=== PATIENT | female | born 1985 | race Caucasian/White ===

== ENCOUNTER → 2016-11-11 | Outpatient (CLI) | payer OTHER ==
[2016-11-11 18:58] LABS: BASO % 0.7 % (0.0-1.0); EOS % 0.9 % (0.0-3.0); LARGE UNSTAINED CELL # 0.1 K/mm3 (0.0-0.4); LARGE UNSTAINED CELL % 1.5 % (0.0-4.0); LYMPH # 2.1 K/mm3 (1.5-6.5); LYMPH % 36.5 % (24.0-44.0); MEAN CORPUSCULAR HEMOGLOBIN 31.4 pg (27.0-33.0); MEAN CORPUSCULAR HGB CONC 34.2 g/dl (32.0-36.5); MEAN CORPUSCULAR VOLUME 91.8 fl (80.0-96.0); MONO # 0.3 K/mm3 (0.0-0.8); MONO % 5.3 % (0.0-5.0); PLATELET COUNT, AUTOMATED 268 k/mm3 (150-450); RED CELL DISTRIBUTION WIDTH 12.2 % (11.5-14.5); WHITE BLOOD COUNT 5.5 K/mm3 (4.0-10.0)
[2016-11-11 19:09] LABS: ESTRADIOL 64.7 PG/ML; FOLLICLE STIMULATING HORMONE 4.6 mIU/mL; LUTEINIZING HORMONE 7.1 mIU/mL; VITAMIN B12 LEVEL 657 PG/ML
[2016-11-11 19:15] LABS: ALBUMIN 4.1 GM/DL (3.2-5.2); ALBUMIN/GLOBULIN RATIO 1.37 (1.00-1.93); ALKALINE PHOSPHATASE 61 U/L (45-117); ALT/SGPT 25 U/L (12-78); ANION GAP 5 MEQ/L (8-16); AST/SGOT 21 U/L (15-37); BILIRUBIN,TOTAL 0.6 MG/DL (0.2-1.0); BLOOD UREA NITROGEN 11 MG/DL (7-18); CARBON DIOXIDE LEVEL 27 MEQ/L (21-32); CHLORIDE LEVEL 106 MEQ/L (98-107); CREATININE FOR GFR 0.83 MG/DL (0.55-1.02); FREE T4 0.91 NG/DL (0.76-1.46); GLOMERULAR FILTRATION RATE > 60.0 (>60); GLUCOSE, FASTING 87 MG/DL (70-105); PERCENT SATURATION 37.6 % (13.2-37.4); POTASSIUM SERUM 4.2 MEQ/L (3.5-5.1); SODIUM LEVEL 138 MEQ/L (136-145); TOTAL IRON BINDING CAPACITY 370 UG/DL (250-450); TOTAL PROTEIN 7.1 GM/DL (6.4-8.2)
== END ==
LOC: M SMT 11:30
PROVIDERS: ATTEND Physician Assistant Medical
DX: D51.8 Other vitamin B12 deficiency anemias (principal); N92.6 Irregular menstruation, unspecified; Z13.29 Encounter for screening for other suspected endocrine disorder; Z13.0 Encounter for screening for diseases of the blood and blood-forming organs and certain disorders involving the immune mechanism

== ENCOUNTER → 2016-12-08 | Outpatient (CLI) | payer OTHER | LOC: M SMT 13:03 | PROVIDERS: ATTEND Physician Assistant Medical | DX: D51.8 Other vitamin B12 deficiency anemias (principal) ==

== ENCOUNTER → 2016-12-08 | Outpatient (REF) | payer OTHER | LOC: M LAB REF 17:52 | PROVIDERS: ATTEND Family Medicine | DX: Z01.419 Encounter for gynecological examination (general) (routine) without abnormal findings (principal); Z11.51 Encounter for screening for human papillomavirus (HPV) ==

== ENCOUNTER → 2016-12-10 | Outpatient (CLI) | payer OTHER ==
--- NOTE | 2016-12-10 14:54 | REP ---
PELVIC ULTRASOUND: Real-time sonographic evaluation of the pelvis is performed utilizing transabdominal and endovaginal technique. The bladder measures 13.9 x 8.6 x 11.2 cm. THE uterus measures 8.0 x 3.6 x 4.7 cm. There appears to be a subseptate uterus, both horns of the endometrium measure 3 mm in AP dimension with no endometrial fluid collection. The ovaries appear normal in size and echotexture, right ovary measuring 3.7 x 2.3 x 3.9 cm and the left ovary 4.5 x 1.9 x 2.6 cm. Multiple follicles are seen in each ovary and they appear to be somewhat peripherally located. There is mild increased stromal echogenicity in the ovaries. Findings could indicate polycystic ovary disease. There is no adnexal mass or free fluid. There is no evidence of ovarian torsion with blood flow seen in each ovary with duplex Doppler evaluation. IMPRESSION: Multiple peripherally located follicles in the ovaries with increased central stromal echogenicity suggests polycystic ovary disease. Otherwise negative pelvic ultrasound. Signed by Sedrick Dye MD 12/10/2016 05:13 P
== END ==
LOC: M RAD 13:09
PROVIDERS: ATTEND Family Medicine
DX: E28.2 Polycystic ovarian syndrome (principal); R93.8 Abnormal findings on diagnostic imaging of other specified body structures

== ENCOUNTER → 2017-11-09 | Outpatient (CLI) | payer OTHER ==
[2017-11-09 18:15] LABS: FOLLICLE STIMULATING HORMONE 9.2 mIU/mL; LUTEINIZING HORMONE 22.7 mIU/mL; VITAMIN B12 LEVEL 349 PG/ML (247-911)
[2017-11-09 18:48] LABS: ALBUMIN 3.9 GM/DL (3.2-5.2); ALBUMIN/GLOBULIN RATIO 1.39 (1.00-1.93); ALKALINE PHOSPHATASE 47 U/L (45-117); ALT/SGPT 16 U/L (12-78); ANION GAP 6 MEQ/L (8-16); AST/SGOT 9 U/L (7-37); BILIRUBIN,TOTAL 0.7 MG/DL (0.2-1.0); BLOOD UREA NITROGEN 12 MG/DL (7-18); CALCIUM LEVEL 8.5 MG/DL (8.5-10.1); CARBON DIOXIDE LEVEL 28 MEQ/L (21-32); CHLORIDE LEVEL 107 MEQ/L (98-107); CREATININE FOR GFR 0.85 MG/DL (0.55-1.30); FREE T4 0.87 NG/DL (0.76-1.46); GLOMERULAR FILTRATION RATE > 60.0 (>60); GLUCOSE, FASTING 94 MG/DL (70-100); POTASSIUM SERUM 4.5 MEQ/L (3.5-5.1); SODIUM LEVEL 141 MEQ/L (136-145); TOTAL PROTEIN 6.7 GM/DL (6.4-8.2)
[2017-11-09 19:17] LABS: ESTIMATED AVERAGE GLUCOSE 108 MG/DL (60-110); HEMOGLOBIN A1c 5.4 %
[2017-11-12 00:14] LABS: TESTOSTERONE FREE (DIRECT) 4.4 pg/mL (0.0-4.2); TISSUE TRANSGLUTAMINASE IgA <2 U/mL (0-3); TISSUE TRANSGLUTAMINASE IgG <2 U/mL (0-5)
== END ==
LOC: M SMT 11:12
DX: E28.2 Polycystic ovarian syndrome (principal); D51.8 Other vitamin B12 deficiency anemias
CPT/HCPCS: 83001

== ENCOUNTER → 2018-06-08 | Outpatient (CLI) | payer OTHER ==
[2018-06-08 20:03] LABS: BASO % 0.5 % (0.0-1.0); EOS % 0.4 % (0.0-3.0); HEMATOCRIT 39.5 % (36.0-47.0); HEMOGLOBIN 13.3 g/dl (12.0-15.5); LYMPH % 25.8 % (24.0-44.0); MEAN CORPUSCULAR HEMOGLOBIN 30.4 pg (27.0-33.0); MEAN CORPUSCULAR HGB CONC 33.7 g/dl (32.0-36.5); MEAN CORPUSCULAR VOLUME 90.4 fl (80.0-96.0); MONO # 0.4 10^3/uL (0.0-0.8); MONO % 5.2 % (0.0-5.0); NEUTROPHILS # 5.3 10^3/uL (1.8-7.7); NEUTROPHILS % 67.7 % (36.0-66.0); PLATELET COUNT, AUTOMATED 317 10^3/uL (150-450); RED BLOOD COUNT 4.37 10^6/uL (4.00-5.40); WHITE BLOOD COUNT 7.8 10^3/uL (4.0-10.0)
== END ==
LOC: M WUC 16:31
PROVIDERS: ATTEND Physician Assistant
DX: Z36.89 Encounter for other specified antenatal screening (principal); Z3A.01 Less than 8 weeks gestation of pregnancy

== ENCOUNTER → 2018-06-10 | Outpatient (CLI) | payer OTHER | LOC: M WUC 12:50 | PROVIDERS: ATTEND Physician Assistant | DX: Z36.89 Encounter for other specified antenatal screening (principal); Z3A.01 Less than 8 weeks gestation of pregnancy ==

== ENCOUNTER → 2018-06-13 | Outpatient (CLI) | payer OTHER ==
--- NOTE | 2018-06-13 13:47 | REP ---
FIRST TRIMESTER ULTRASOUND OB: Real-time sonographic evaluation of the pelvis performed utilizing transabdominal and endovaginal technique. Uterus measures 9.0 x 5.1 x 6.7 cm. There is a gestational sac seen in the endometrial canal with decidual reaction. No yolk sac or pole is visualized. Mean sac diameter is 10 mm which would correspond to an estimated gestational age of 5 weeks 5 days. Right ovary measures 2.4 x 1.7 x 1.6 cm and left ovary 4.0 x 1.9 x 2.8 cm. There is a complex cystic structure in the left ovary 2.0 cm in diameter probably representing a corpus luteum. No free fluid is seen. Blood flow is seen in each ovary with duplex Doppler evaluation, with no torsion. IMPRESSION: Gestational sac like structure in the endometrial canal measures 10 mm and would correspond to an estimated gestational age of 5 weeks 5 days. There is no yolk sac or pole seen within it. This could represent an early gestational sac. Ectopic cannot totally be excluded. Suggest clinical correlation. Followup ultrasound recommended in 10-14 days to document viability. Electronically Signed by Sedrick Dye MD 06/13/2018 05:28 P
== END ==
LOC: M RAD 12:05
PROVIDERS: ATTEND Physician Assistant
DX: Z36.87 Encounter for antenatal screening for uncertain dates (principal); Z3A.01 Less than 8 weeks gestation of pregnancy

== ENCOUNTER → 2018-07-11 | Outpatient (CLI) | payer OTHER ==
[2018-07-11 18:36] LABS: BASO % 0.4 % (0.0-1.0); EOS % 0.4 % (0.0-3.0); HEMATOCRIT 39.4 % (36.0-47.0); HEMOGLOBIN 13.3 g/dl (12.0-15.5); LYMPH # 2.1 10^3/uL (1.5-4.5); LYMPH % 21.8 % (24.0-44.0); MEAN CORPUSCULAR HEMOGLOBIN 30.9 pg (27.0-33.0); MEAN CORPUSCULAR HGB CONC 33.8 g/dl (32.0-36.5); MEAN CORPUSCULAR VOLUME 91.4 fl (80.0-96.0); MONO # 0.5 10^3/uL (0.0-0.8); MONO % 5.7 % (0.0-5.0); NEUTROPHILS # 6.8 10^3/uL (1.8-7.7); NEUTROPHILS % 71.4 % (36.0-66.0); PLATELET COUNT, AUTOMATED 301 10^3/uL (150-450); RED BLOOD COUNT 4.31 10^6/uL (4.00-5.40); WHITE BLOOD COUNT 9.5 10^3/uL (4.0-10.0)
[2018-07-11 19:50] LABS: CHLAMYDIA DNA AMPLIFICATION NEGATIVE (NEGATIVE); GC DNA AMPLIFICATION NEGATIVE (NEGATIVE)
[2018-07-12 10:15] LABS: HEPATITIS C VIRUS ABY INDEX < 0.0 INDEX (<0.8); HIV 1&2 SCREEN CENTAUR NEGATIVE (NEGATIVE); RUBELLA IgG QUALITATIVE IMMUNE (IMMUNE)
== END ==
LOC: M SMT 13:39
PROVIDERS: ATTEND Specialist
DX: Z36.89 Encounter for other specified antenatal screening (principal)

== ENCOUNTER → 2018-09-26 | Outpatient (CLI) | payer OTHER ==
--- NOTE | 2018-09-26 15:19 | REP ---
Clinical: Anatomical evaluation. Comparison: 06/13/2018 . Findings: Examination demonstrates a single live intrauterine in cephalic presentation. motion is identified by technologist. Placenta is noted posterior/left lateral and grade 1 without evidence for placenta previa or abruption. Anterior succenturiate lobe is identified. Amniotic fluid volume is normal. Cervix measures 4.6 cm in length and appears closed. No evidence for nuchal cord. Gestational age by LMP 20 weeks 6 days with LA 02/07/2019 . Gestational age by current measurements 20 weeks 4 days with LA 02/09/2019 . FHR equals 140 beats per minute. BPD 4.9 cm 20 weeks 5 days HC 18.2 cm 20 weeks 4 days AC 15.4 cm 20 weeks 4 days FL 3.4 cm 20 weeks 4 days HL 3.1 cm 20 weeks 3 days HC/AC ratio 1.18 Estimated weight 366 grams ( 37 percentile). Anatomical assessment demonstrates normal structures including cranium, choroid plexus, cavum, cerebellum/posterior fossa, lungs, four-chamber heart, diaphragm, stomach, three-vessel cord, kidneys/bladder, spine, and extremities. Limited evaluation of the facial features, cardiac ventricular outflow tracts, and cord insertion. Impression: 1. Single live intrauterine in cephalic presentation demonstrating appropriate interval growth. 2. Anterior succenturiate lobe to the placenta noted. 3. Anatomical limitations as described above. Electronically Signed by Neal Gates MD 09/26/2018 03:11 P
== END ==
LOC: M RAD 14:02
PROVIDERS: ATTEND Specialist
DX: Z34.82 Encounter for supervision of other normal pregnancy, second trimester (principal)

== ENCOUNTER → 2018-10-13 | Outpatient (CLI) | payer OTHER ==
[~2018-10-13] MED LIST: AZIT500T2 PO; OMEP40CA2 PO; PRENTAB9 PO; ZANTTAB PO
--- NOTE | 2018-10-13 11:12 | REP ---
Obstetric sonography: History: Supervision of , followup anatomy. Findings: Scanning through the gravid uterus demonstrates a viable single intrauterine gestation in a cephalic lie. motion is observed and heart rate is recorded at 149 beats per minute. A left lateral grade zero placenta is seen without evidence of previa or abruption. Amniotic fluid is subjectively normal. Closed cervical length is 4.6 cm. No extrauterine abnormality is observed. There has been appropriate interval growth. Small succenturiate placental lobe is seen. Visualization of the upper extremities was less than optimally achieved today due to position, however the upper extremities were observed previously. The following additional anatomic structures are identified and felt to be unremarkable: cranium, choroid plexus, cavum, cerebellum and posterior fossa, face and profile, lungs, four-chamber heart with left and right ventricular outflow tract views, diaphragm, left-sided stomach, abdominal wall cord insertion, three-vessel umbilical cord, kidneys and bladder, spine, lower extremities. Biometry chart: BPD 5.8 cm 23 weeks 6 days Head circumference 20.8 cm 22 weeks 6 days Abdominal circumference 19.8 cm 24 weeks 3 days Femur length 4.2 cm 23 weeks 4 days Humeral length 3.8 cm 23 weeks 1 day HC/AC ratio normal 1.05. Cephalic index normal 0.79. Estimated weight 645 grams, 1 pound 6 ounces, 65th percentile for 23 weeks 2 days. Impression: Viable single intrauterine gestation at 23 weeks 4 days by today's composite sonographic criteria. The expected gestational age estimate based on prior sonography is 23 weeks 0 days. LA by prior sonography February 09, 2019. There is appropriate interval growth. anatomic survey is felt to be complete in conjunction with the prior study. Electronically Signed by Diego Vides MD 10/13/2018 03:08 P
== END ==
LOC: M RAD 09:44
PROVIDERS: ATTEND Specialist
DX: Z34.82 Encounter for supervision of other normal pregnancy, second trimester (principal); Z3A.23 23 weeks gestation of pregnancy

== ENCOUNTER 2018-10-15 19:15 | Outpatient (CLI) | payer OTHER ==
[~2018-10-15] VITALS: Ht 177.8 cm; Wt 104.5 kg
[2018-10-15 19:36] VITALS: BP 139/84
[2018-10-15] MEDS ORDERED: LACTATED RINGER'S 1000 ML IV STA (19:42)
[2018-10-15] MEDS: LR 1,000 ML IV SCH (19:42)
[2018-10-15 20:13] LABS: HEMATOCRIT 42.4 % (36.0-47.0); HEMOGLOBIN 14.4 g/dl (12.0-15.5); MEAN CORPUSCULAR HEMOGLOBIN 32.2 pg (27.0-33.0); MEAN CORPUSCULAR VOLUME 94.9 fl (80.0-96.0); PLATELET COUNT, AUTOMATED 294 10^3/uL (150-450); RED BLOOD COUNT 4.47 10^6/uL (4.00-5.40); WHITE BLOOD COUNT 13.6 10^3/uL (4.0-10.0)
[2018-10-15] MEDS: ONDANSETRON 4MG/2ML VIAL (J2405) IV SCH ×2 (20:19→21:45)
[2018-10-15 20:53] LABS: ALBUMIN 3.3 GM/DL (3.2-5.2); ALT/SGPT 30 U/L (12-78); BILIRUBIN,TOTAL 0.5 MG/DL (0.2-1.0); BLOOD UREA NITROGEN 8 MG/DL (7-18); CALCIUM LEVEL 9.1 MG/DL (8.5-10.1); CARBON DIOXIDE LEVEL 22 MEQ/L (21-32); CHLORIDE LEVEL 107 MEQ/L (98-107); CREATININE FOR GFR 0.57 MG/DL (0.55-1.30); GLOMERULAR FILTRATION RATE > 60.0 (>60); GLUCOSE, FASTING 87 MG/DL (70-100); LIPASE 149 U/L (73-393); POTASSIUM SERUM 4.1 MEQ/L (3.5-5.1); SODIUM LEVEL 139 MEQ/L (136-145); TOTAL PROTEIN 7.3 GM/DL (6.4-8.2)
[2018-10-15] MEDS ORDERED: PRENTAB9 PO (21:32)
[2018-10-15] MEDS ORDERED: ZANTTAB PO (21:32)
[2018-10-15] MEDS ORDERED: OMEPRAZOLE 20 MG CAP PO ONE (22:15)
[2018-10-15] MEDS ORDERED: PANTOPRAZOLE SODIUM 40 MG in D5W 50 ML IV SCH (22:30)
[2018-10-15] MEDS ORDERED: PANTOPRAZOLE 40MG INJ (PROTONIX) (C9113) IV ONE (22:45)
[2018-10-15 22:57] VITALS: BP 124/61
[2018-10-16] MEDS: ONDANSETRON 4MG/2ML VIAL (J2405) IV SCH ×3 (02:53→12:30)
[2018-10-16] MEDS: LR 1,000 ML IV SCH (02:53)
[2018-10-16 02:58] VITALS: BP 93/50
[2018-10-16] MEDS ORDERED: PROMETHAZINE INJ 25 MG/ML VIAL (J2550) IM ONE (04:00)
[2018-10-16] MEDS ORDERED: PROMETHAZINE INJ 25 MG/ML VIAL (J2550) IV ONE ×2 (04:30)
[2018-10-16 06:32] LABS: BLOOD UREA NITROGEN 8 MG/DL (7-18); CARBON DIOXIDE LEVEL 22 MEQ/L (21-32); CHLORIDE LEVEL 109 MEQ/L (98-107); CREATININE FOR GFR 0.69 MG/DL (0.55-1.30); GLOMERULAR FILTRATION RATE > 60.0 (>60); GLUCOSE, FASTING 114 MG/DL (70-100); POTASSIUM SERUM 3.6 MEQ/L (3.5-5.1); SODIUM LEVEL 140 MEQ/L (136-145)
--- NOTE | 2018-10-16 07:53 | HPE ---
DATE OF ADMISSION: 10/15/2018 33-year-old, (G) 1, para (P) 0, female at 23 and 4/7 weeks gestation by last menstrual period (LMP) consistent with 9 week ultrasound with expected date of confinement (EDC) 02/07/2019 who presents with nausea and vomiting starting at 4:30 a.m. on the day of presentation to triage. She is unable to keep any oral intake down. She began retching the vomiting was so severe. She started to have diarrhea later in the afternoon as well. She denies fevers or chills. She denies sick contacts. MEDICAL HISTORY: 1. Polycystic ovary disease (PCOS). 2. Endometriosis. SURGICAL HISTORY: Pilonidal cyst excision. ALLERGIES: No known drug allergies. SOCIAL HISTORY: The patient lives in [place]. Father of the baby is involves. She denies cigarettes, alcohol or drug use. FAMILY HISTORY: Noncontributory. PHYSICAL EXAMINATION: Blood pressure 139/84. Pulse 91. Temperature 99.4. Respiratory rate 22. She appears uncomfortable. Head and Neck Exam: Normal. Lungs: Clear. Heart: Regular rate and rhythm. Abdomen: Nontender. Gravid. heart tones Category one. Extremities: Nontender. No edema. ASSESSMENT: 33-year-old, G1, at 23 and 4/7 weeks gestation who presents with a viral gastroenteritis and dehydration. PLAN: To admit for IV hydration as well as antiemetic treatment. Will monitor the fetus and look for symptomatic improvement.
[2018-10-16] MEDS ORDERED: LOPERAMIDE 2 MG CAP PO ONE (08:15)
[2018-10-16 08:22] VITALS: BP 116/58
[2018-10-16] MEDS ORDERED: KCL 20MEQ IN D5/0.2%NS 1000ML 1,000 ML IV SCH (09:00)
[2018-10-16] MEDS ORDERED: MULTIVITAMIN -ADULT INJECTION 10 ML, THIAMINE INJection 100 MG, FOLIC ACID 1 MG in NS 1... IV ONE (09:00)
[2018-10-16 13:29] VITALS: BP 96/54
[2018-10-16] MEDS ORDERED: AZIT500T2 PO (13:58)
[2018-10-16] MEDS ORDERED: AZITHROMYCIN 250 MG TAB PO ONE (14:00)
[2018-10-16] MEDS ORDERED: OMEPRAZOLE 20 MG CAP PO ONE (15:30)
[2018-10-16] MEDS ORDERED: OMEP40CA2 PO (16:43)
--- NOTE | 2018-10-16 18:07 | IPNPDOC ---
Text Note Date of Service The patient was seen on 10/16/18. NOTE Subjective: Patient is a 33-year-old female who is a at 23.5 weeks gest ation with an LA of 02/07/19. Her has been uncomplicated. She presents to L&D with complaints of nausea, vomiting, and diarrhea. She denies vaginal bleeding, leaking of fluid, or contractions. She reports active movement. She reports no vomiting since this last night and no diarrhea since this morning. She reports she feels much better now. Objective: VS and labs: see below. FHR is 155-160 with moderate variability Assessment: IUP at 23.5 weeks gestation, gastroenteritis (Norovirus and Enteropathogenic E. Coli) Plan: Patient discharged to home. Azithromycin ordered and sent to pharmacy. Patient had a 1000 mg while in hospital and is to take 500 mg daily for 3 days. Reviewed gastroenteritis and side effects of bacteria and virus. Reviewed how contagious virus is. Patient to follow-up for her routine OB visit, which is scheduled for November 07. She is to call if she gets a fever that is not controlled with acetaminophen, if she is unable to keep fluids down for 24 hour s, labor signs, vaginal bleeding, decreased movement, or abdominal trauma. Patient discharged to home with her . VS,Ruben, I+O VS, Ruben, I+O Laboratory Tests 10/15/18 19:50 Red Blood Count 4.47, Mean Corpuscular Volume 94.9, Mean Corpuscular Hemoglobin 32.2, Mean Corpuscular Hemoglobin Concent 34.0, Red Cell Distribution Width 13.2, Calcium Level 9.1, Aspartate Amino Transf (AST/SGOT) 37, Alanine Aminotransferase (ALT/SGPT) 30, Alkaline Phosphatase 53, Total Bilirubin 0.5, Total Protein 7.3, Albumin 3.3 10/16/18 06:02 Calcium Level 8.0 L Vital Signs Date Time Temp Pulse Resp B/P (MAP) Pulse Ox O2 Delivery O2 Flow Rate FiO2 10/16/18 17:13 98.5 10/16/18 13:29 100 18 96/54 (68) 10/16/18 02:58 95 GASTROINTESTINAL (GI) PANEL Final POSITIVE by MULTIPLEXED NUCLEIC ACID PCR Organism 1 NOROVIRUS UNFORMED stool. Noroviruses are highly contagious and cause moderate to severe gastroenteritis consisting primarily of nausea, vomiting, and diarrhea with fever. Transmission is fecal-oral or through aerosolized vomitus. Symptoms generally last 24-48 hai rs and the illness in self-limiting. Organism 2 ENTEROPATHOGENIC E.COLI UNFORMED stool. Enteropathogenic E.coli (EPEC) infections can range from asymptomatic to acute non bloody diarrhea with vomiting and fever. EPEC outbreaks appear to peak in summer and early fall. This Gastrointestinal PCR Panel detects the following bacteria, parasites and viruses: Campylobacter (jejuni, coli and upsaliensis), Clostridium difficile (toxin A/B), Plesiomonas shigelloides, Salmonella, Yersinia enterocolitica, Vibrio (parahaemolyticus, vulnificus and cholerae), Vibrio clolerae, Enteroaggregative E. coli (EAEC), Enteropathogenis E. coli (EPEC), Enterotoxigenic E. coli (ETEC) it/st, Shiga-like producing E. coli (STEC) stx1/stc2, E.coli O157, Shigella/Enteroinvasive E. coli (EIEC), Cryptosporidium, Cyclospora cayetanensis, Entamoeba histolytica, Giardia lamblia, Adenovirus F 40/41, Astrovirus, Norovirus GI/GII, Rotavirus A and Sapovirus (I, II, IV, V). OLYA SHEN Oct 16, 2018 18:07
== END 2018-10-16 18:23 | disposition home or self-care (01) ==
LOC: M LDO 19:15
PROVIDERS: ATTEND Specialist
DX: O21.2 Late vomiting of pregnancy (principal); O26.892 Other specified pregnancy related conditions, second trimester; R19.7 Diarrhea, unspecified; O99.282 Endocrine, nutritional and metabolic diseases complicating pregnancy, second trimester; O99.612 Diseases of the digestive system complicating pregnancy, second trimester; Z3A.23 23 weeks gestation of pregnancy
CPT/HCPCS: 36415; 80048; 80053; 83690; 85027; 87507; 96360; 96361; 96365; 96366; 96367; 96375; C9113; G0378; G0463; J2405; J3411

== ENCOUNTER → 2018-11-07 | Outpatient (CLI) | payer OTHER ==
[~2018-11-07] MED LIST changes: +ZANT150T40 PO; -ZANTTAB PO
[2018-11-07 13:55] LABS: BASO % 0.3 % (0.0-1.0); EOS % 0.5 % (0.0-3.0); HEMATOCRIT 35.5 % (36.0-47.0); HEMOGLOBIN 11.8 g/dl (12.0-15.5); LYMPH # 1.6 10^3/uL (1.5-4.5); LYMPH % 21.5 % (24.0-44.0); MEAN CORPUSCULAR HEMOGLOBIN 31.7 pg (27.0-33.0); MEAN CORPUSCULAR HGB CONC 33.2 g/dl (32.0-36.5); MEAN CORPUSCULAR VOLUME 95.4 fl (80.0-96.0); MONO # 0.4 10^3/uL (0.0-0.8); MONO % 5.6 % (0.0-5.0); NEUTROPHILS # 5.4 10^3/uL (1.8-7.7); NEUTROPHILS % 71.3 % (36.0-66.0); PLATELET COUNT, AUTOMATED 268 10^3/uL (150-450); RED BLOOD COUNT 3.72 10^6/uL (4.00-5.40); WHITE BLOOD COUNT 7.6 10^3/uL (4.0-10.0)
== END ==
LOC: M SMT 09:59
PROVIDERS: ATTEND Specialist
DX: Z34.82 Encounter for supervision of other normal pregnancy, second trimester (principal); Z3A.00 Weeks of gestation of pregnancy not specified

== ENCOUNTER → 2018-12-08 | Outpatient (CLI) | payer OTHER ==
[~2018-12-08] MED LIST changes: -AZIT500T2 PO; +AZIT500T5 PO; +CALCTAB89 PO; +COLA100C5 PO; +IBUP-1022 PO; +MULTCAP PO; -OMEP40CA2 PO; +OMEP40CA97 PO; +OXYC1TAB23 PO; +VITA500C24 PO
--- NOTE | 2018-12-08 08:21 | REP ---
Clinical: Anatomical evaluation. Comparison: 10/13/2018 . Findings: Examination demonstrates a single live intrauterine in cephalic presentation. motion is identified by technologist. Amniotic fluid volume is normal. Cervix measures 5.2 cm in length and appears closed. No evidence for nuchal cord. Placenta is noted anterior and grade one with evidence for anterior succenturiate lobe and cord vessels at the internal os again raising the possibility of vasa previa. Gestational age by LMP 31 weeks 2 days with LA 02/07/2019 . Gestational age by current measurements 32 weeks 5 days with LA 01/28/2019 . FHR equals 140 beats per minute. Estimated weight 2192 grams (89th percentile). Amniotic fluid index: 17.7 cm (8.7 - 23.9) Umbilical cord SD ratio: 2.38 Impression: 1. Anterior grade 1 placenta with anterior succenturiate lobe and cord vessels overlying the internal os. Vasa previa cannot be excluded. 2. Live in cephalic presentation demonstrating appropriate interval growth. Electronically Signed by Neal Gates MD 12/08/2018 08:13 A
== END ==
LOC: M RAD 07:10
PROVIDERS: ATTEND Specialist
DX: Z03.72 Encounter for suspected placental problem ruled out (principal); Z3A.32 32 weeks gestation of pregnancy

== ENCOUNTER 2018-12-28 09:47 | Outpatient (CLI) | payer OTHER ==
[~2018-12-28] VITALS: Ht 177.8 cm; Wt 114.7 kg
[~2018-12-28 09:47] MED LIST changes: +AZIT500T2 PO; -AZIT500T5 PO; -CALCTAB89 PO; -COLA100C5 PO; -IBUP-1022 PO; -MULTCAP PO; +OMEP40CA2 PO; -OMEP40CA97 PO; -OXYC1TAB23 PO; -VITA500C24 PO
[2018-12-28] MEDS ORDERED: BETAMETHASONE SOLUSPAN 6MG/ML INJ 5ML (J0702) IM ONE (10:15)
[2018-12-28 10:18] VITALS: BP 128/59
--- NOTE | 2018-12-28 14:14 | IPNPDOC ---
Text Note Date of Service The patient was seen on 12/28/18. NOTE S: 33 yo at 34 weeks EGA with vasa previa, presenting for betamethasone injection. No contractions, leakage of fluid, bleeding or discharge. Feeling baby move. O: vital stable Lungs: no respiratory distress Heart: RRR Abdomen: gravid FHR: 150 bpm, moderate variability, reactive NST A/P 33 yo at 34 weeks EGA with vasa previa, presenting for first betamethasone injection -reassuring status -not in labor -D/C home, will come in tomorrow for 2nd beta injection VS,Fishbone, I+O VS, Fishbone, I+O Vital Signs Date Time Temp Pulse Resp B/P (MAP) Pulse Ox O2 Delivery O2 Flow Rate FiO2 12/28/18 10:18 98.1 95 16 128/59 (82) GME ATTESTATION GME ATTESTATION My faculty preceptor for this patient encounter was physically present during the encounter and was fully available. All aspects of the patient interview, examination, medical decision making process, and medical care plan development were reviewed and approved by the faculty preceptor. The faculty preceptor is aware and concurs with the plan as stated in the body of this note and will attest to such by his/her cosignature. SILVINO HODGSON DO Dec 28, 2018 14:14
== END 2018-12-28 11:38 | disposition home or self-care (01) ==
LOC: M LDO 09:47
PROVIDERS: ATTEND Obstetrics & Gynecology
DX: O43.893 Other placental disorders, third trimester (principal); Z3A.34 34 weeks gestation of pregnancy
CPT/HCPCS: 59025; 96372; G0378; G0463; J0702

== ENCOUNTER 2018-12-29 10:42 | Outpatient (CLI) | payer OTHER ==
[~2018-12-29] VITALS: Ht 177.8 cm; Wt 114.7 kg
[2018-12-29 10:52] VITALS: BP 123/73
[2018-12-29] MEDS ORDERED: BETAMETHASONE SOLUSPAN 6MG/ML INJ 5ML (J0702) IM ONE ×2 (11:15→11:30)
== END 2018-12-29 11:00 | disposition home or self-care (01) ==
LOC: M LDO 10:42
PROVIDERS: ATTEND Advanced Practice Midwife
DX: O43.893 Other placental disorders, third trimester (principal); Z3A.34 34 weeks gestation of pregnancy
CPT/HCPCS: 96372; G0378; J0702

== ENCOUNTER → 2019-01-08 | Outpatient (REF) | payer OTHER ==
[~2019-01-08] MED LIST changes: +IBUP-1022 PO; +OXYC1TAB23 PO
== END ==
LOC: M LAB REF 18:04
PROVIDERS: ATTEND Specialist
DX: O44.10 Complete placenta previa with hemorrhage, unspecified trimester (principal)

== ENCOUNTER 2019-01-09 05:10 | Inpatient (IN) | payer OTHER ==
[~2019-01-09] VITALS: Ht 177.8 cm; Wt 115.1 kg
[~2019-01-09 05:10] MED LIST changes: -IBUP-1022 PO; -OXYC1TAB23 PO
[2019-01-09] MEDS ORDERED: BICITRA 30ML SOLN UDC PO ONE (05:30)
[2019-01-09] MEDS ORDERED: LR 1,000 ML IV SCH ×2 (05:30→08:58)
[2019-01-09] MEDS ORDERED: LR 800 ML IV ONE (05:30)
[2019-01-09 06:44] LABS: HEMATOCRIT 32.9 % (36.0-47.0); HEMOGLOBIN 10.8 g/dl (12.0-15.5); MEAN CORPUSCULAR HGB CONC 32.8 g/dl (32.0-36.5); MEAN CORPUSCULAR VOLUME 91.4 fl (80.0-96.0); PLATELET COUNT, AUTOMATED 257 10^3/uL (150-450)
[2019-01-09] MEDS ORDERED: OXYTOCIN INJ 10 UNITS/ML VIAL (J2590) As Ordered ONE (07:13)
[2019-01-09] MEDS ORDERED: MORPHINE PRES-FREE INJ 10 MG/10 ML VIAL (J2274) As Ordered ONE (07:16)
[2019-01-09] MEDS ORDERED: BUPIVACAINE/DEXTROSE 0.75% 2 ML AMP As Ordered ONE (07:18)
[2019-01-09] MEDS ORDERED: PHENYLephrine HCL 500 MCG/5 ML (100MCG/ML) SYRINGE (J2370) As Ordered ONE ×2 (07:19→08:06)
[2019-01-09] MEDS ORDERED: dexameTHASONE 4 MG/ML 1ML VIAL (J1100) As Ordered ONE (07:21)
[2019-01-09] MEDS ORDERED: ONDANSETRON 4MG/2ML VIAL (J2405) IV PRN ×3 (07:48→09:45)
[2019-01-09] MEDS ORDERED: NALBUPHINE HCL 10 MG/ML AMP (J2300) IV PRN ×2 (07:48→09:45)
[2019-01-09] MEDS ORDERED: METOCLOPRAMIDE INJ 10MG/2ML VIAL (J2765) IV PRN (07:48)
[2019-01-09] MEDS ORDERED: NALOXONE INJ 0.4 MG/1 ML VIAL (J2310) IV PRN ×2 (07:48)
[2019-01-09] MEDS ORDERED: diphenhydrAMINE INJ 50MG/ML VIAL (J1200) IV PRN (07:48)
[2019-01-09] MEDS ORDERED: ePHEDrine SULFATE 25 MG/5 ML(5MG/ML) SYRINGE As Ordered ONE (08:01)
[2019-01-09] MEDS ORDERED: ONDANSETRON 4MG/2ML VIAL (J2405) As Ordered ONE (08:34)
[2019-01-09] MEDS ORDERED: OXYTOCIN DRIP 30 UNITS in APPROPRIATE DILUENT 1 EA IV SCH (08:58)
[2019-01-09] MEDS: PRENATAL VITAMINS CHEWABLE TABLET PO SCH (09:00)
[2019-01-09] MEDS ORDERED: RHOGAM 300 MCG (1500 IU) INJ (J2790) IM SCH (09:00)
[2019-01-09] MEDS ORDERED: MEASLES,MUMPS,RUBELLA VACCINE INJ (MMR-II) (90707) SC SCH (09:00)
[2019-01-09] MEDS ORDERED: KETOROLAC 30 MG/ML VIAL (J1885) IV PRN (09:45)
[2019-01-09] MEDS ORDERED: fentaNYL 100 MCG/2 ML INJECTION (J3010) IV PRN (09:45)
[2019-01-09] MEDS ORDERED: KETOROLAC 30 MG/ML VIAL (J1885) As Ordered ONE (09:53)
[2019-01-09] MEDS ORDERED: KETOROLAC 30 MG/ML VIAL (J1885) IV SCH (10:00)
[2019-01-09] MEDS ORDERED: OXYTOCIN 30 UNITS IN 0.9% NaCl 500ML IV BAG (J2590) As Ordered ONE (10:11)
--- NOTE | 2019-01-09 10:57 | RO ---
DATE OF PROCEDURE: 01/09/2019 PREPROCEDURE DIAGNOSIS: 35 and 6/7 weeks gestation, suspected vasa previa. POSTPROCEDURE DIAGNOSIS: 35 and 6/7 weeks gestation, suspected vasa previa. PROCEDURE: Primary low transverse section. SURGEON: Dr. Nando Jean-Baptiste TUBE COREMAKER: Laura Candelaria CNM ANESTHESIA: Spinal. ESTIMATED BLOOD LOSS: 600 mL. IV FLUIDS: 1100 mL lactated Ringers. URINE OUTPUT: 100 mL. FINDINGS: 6 pound 10 ounce, 3010 gram, female , 8 and 9, vertex. Normal uterus, fallopian tubes and ovaries. Suspected vasa previa. Placenta with large accessory lobe, velamentous cord insertion. DESCRIPTION OF PROCEDURE: The patient was taken to the operating room where spinal anesthesia was induced. She was prepped and draped in sterile fashion in the supine position. A Campbell catheter was placed. A Pfannenstiel skin incision was made with the scalpel and carried through to the fascia. The fascia was nicked and extended. The fascia dissected off the rectus muscles. The peritoneal cavity was entered. A bladder flap was created. A curvilinear incision was made in the lower uterine segment until positive membranes were noted. This was extended manually. Membranes were ruptured and clear fluid noted. The infant was delivered in the vertex position without difficulty. The cord was doubly clamped and cut. The infant was handed off to the awaiting nurses. The placenta was expressed. The uterus was exteriorized and cleared of clots and debris. The uterine incision was closed with #0 Vicryl in a running locked fashion. A second imbricating layer of #0 Vicryl was placed. The uterus was placed back. The peritoneum was closed with #2-0 Vicryl in a running fashion. The fascia was closed with #0 Vicryl. The deep layer was irrigated and closed with #2-0 chromic. The skin was closed with #4-0 Monocryl subcuticular sutures. Sponge, instrument and needle counts were correct. Laura Candelaria CNM, assisted throughout the procedure. She helped create all layers of the incision. She helped expel the fetus and closing of all subsequent layers.
[2019-01-09 11:44] VITALS: BP 119/55
[2019-01-09 13:10] VITALS: BP 111/61
[2019-01-09 14:10] VITALS: BP 109/59
[2019-01-09] MEDS: PERCOCET 5MG/325MG TAB PO PRN (14:27)
[2019-01-09 15:05] VITALS: BP 111/62
[2019-01-09] MEDS: KETOROLAC 30 MG/ML VIAL (J1885) IV SCH ×2 (17:31→22:12)
[2019-01-09 18:03] VITALS: BP 111/55
[2019-01-09 22:28] VITALS: BP 103/51
[2019-01-09] MEDS: DOCUSATE SODIUM 100 MG CAP PO PRN (22:47)
[2019-01-10 02:39] VITALS: BP 107/53
[2019-01-10] MEDS: KETOROLAC 30 MG/ML VIAL (J1885) IV SCH (05:20)
[2019-01-10 06:08] VITALS: BP 122/59
--- NOTE | 2019-01-10 06:16 | IPNPDOC ---
Text Note Date of Service The patient was seen on 01/10/19. NOTE Postop Day 1 s/p primary LTCS; uncomplicated S: pain adequately controlled, lochia and bleeding decreasing, voiding spontaneously, ambulating without assistance, tolerating regular diet. O: vitals stable Heart: RRR, no murmurs Lungs: CTA bilaterally Abd: Fundus firm @ U, incision dressing dry and intact Ext: no edema, nontender, negative Med's bilaterally A/P: 33 yo G1 now P1. day 1 s/p . Hemodynamically stable, afebrile, adequate pain control. Recovering well. -Routine postoperative care and advancement. -Anticipate discharge Tuesday VS,Elviee, I+O VS, Elviee, I+O Laboratory Tests 01/09/19 06:31 Red Blood Count 3.60 L, Mean Corpuscular Volume 91.4, Mean Corpuscular Hemoglobin 30.0, Mean Corpuscular Hemoglobin Concent 32.8, Red Cell Distribution Width 12.9 Vital Signs Date Time Temp Pulse Resp B/P (MAP) Pulse Ox O2 Delivery O2 Flow Rate FiO2 01/10/19 06:08 99.4 88 18 122/59 (80) 01/09/19 22:28 98 I&O- Last 24 Hours up to 6 AM 01/10/19 05:59 Intake Total 3832 ml Output Total 3725 ml Balance 107 ml SILVINO HODGSON DO Jan 10, 2019 06:16
[2019-01-10 06:59] LABS: HEMATOCRIT 27.4 % (36.0-47.0); MEAN CORPUSCULAR HEMOGLOBIN 30.8 pg (27.0-33.0); MEAN CORPUSCULAR HGB CONC 32.8 g/dl (32.0-36.5); MEAN CORPUSCULAR VOLUME 93.8 fl (80.0-96.0); PLATELET COUNT, AUTOMATED 185 10^3/uL (150-450); RED BLOOD COUNT 2.92 10^6/uL (4.00-5.40); WHITE BLOOD COUNT 10.3 10^3/uL (4.0-10.0)
[2019-01-10] MEDS ORDERED: OXYC1TAB23 PO (07:07)
[2019-01-10] MEDS ORDERED: IBUP-1022 PO (07:08)
[2019-01-10] MEDS: PRENATAL VITAMINS CHEWABLE TABLET PO SCH (07:49)
[2019-01-10] MEDS: PERCOCET 5MG/325MG TAB PO PRN ×2 (10:35→19:48)
[2019-01-10 10:40] VITALS: BP 105/57
[2019-01-10] MEDS: IBUPROFEN 800 MG TAB PO SCH ×2 (13:21→21:27)
[2019-01-10 13:45] VITALS: BP 103/60
[2019-01-10 17:55] VITALS: BP 121/65
[2019-01-10] MEDS: DOCUSATE SODIUM 100 MG CAP PO PRN (21:32)
[2019-01-10 22:16] VITALS: BP 111/56
[2019-01-11 02:28] VITALS: BP 109/52
[2019-01-11] MEDS: IBUPROFEN 800 MG TAB PO SCH ×3 (05:08→20:05)
[2019-01-11 05:47] VITALS: BP 120/70
[2019-01-11] MEDS: PERCOCET 5MG/325MG TAB PO PRN ×2 (06:36→20:05)
--- NOTE | 2019-01-11 07:13 | IPNPDOC ---
Text Note Date of Service The patient was seen on 01/11/19. NOTE Postop Day 2 s/p primary LTCS; uncomplicated S: pain adequately controlled, lochia and bleeding decreasing, voiding spontaneously, ambulating without assistance, tolerating regular diet. O: vitals stable Heart: RRR, no murmurs Lungs: CTA bilaterally Abd: Fundus firm @ U, incision dressing dry and intact Ext: no edema, nontender, negative Med's bilaterally A/P: 33 yo G1 now P1. Postop day 2 s/p primary LTCS. Hemodynamically stable, afebrile, adequate pain control. Recovering well. -Routine postoperative care and advancement. -Anticipate discharge tomorrow VS,Fishbone, I+O VS, Fishbone, I+O Vital Signs Date Time Temp Pulse Resp B/P (MAP) Pulse Ox O2 Delivery O2 Flow Rate FiO2 01/11/19 06:36 16 01/11/19 05:47 98.2 78 120/70 (87) 98 I&O- Last 24 Hours up to 6 AM 01/11/19 06:00 Intake Total 500 ml Balance 500 ml GME ATTESTATION GME ATTESTATION My faculty preceptor for this patient encounter was physically present during the encounter and was fully available. All aspects of the patient interview, examination, medical decision making process, and medical care plan development were reviewed and approved by the faculty preceptor. The faculty preceptor is aware and concurs with the plan as stated in the body of this note and will attest to such by his/her cosignature. SILVINO HODGSON DO Jan 11, 2019 07:13
[2019-01-11] MEDS: PRENATAL VITAMINS CHEWABLE TABLET PO SCH (10:50)
[2019-01-11 18:00] VITALS: BP 109/61
[2019-01-11] MEDS: DOCUSATE SODIUM 100 MG CAP PO PRN (20:04)
[2019-01-12] MEDS: IBUPROFEN 800 MG TAB PO SCH ×2 (05:31→12:49)
[2019-01-12] MEDS: PERCOCET 5MG/325MG TAB PO PRN (05:57)
[2019-01-12 06:01] VITALS: BP 114/56
[2019-01-12] MEDS: PRENATAL VITAMINS CHEWABLE TABLET PO SCH (08:32)
--- NOTE | 2019-01-13 08:59 | DSES ---
DATE OF ADMISSION: 01/09/2019 DATE OF DISCHARGE: 01/12/2019 DISCHARGE DIAGNOSIS: 1. Vasa previa. 2. Primary low transverse section. PROCEDURES PERFORMED WHILE IN THE HOSPITAL: 1. Primary low transverse section. 2. Spinal anesthesia. HISTORY OF PRESENT ILLNESS: Ms. Galan is a 33-year-old 1 now para 1 who presented to the labor and delivery for her primary low transverse section at 35 weeks 6 days estimated gestational age secondary to vasa previa. She underwent an uncomplicated section productive of a live born female , scores eight and nine. Weight was 3010 grams (6 pounds 10 ounces). Estimated blood loss was 600 mL. Ms. Galan did well postoperatively and by postoperative day three had met all discharge criteria. She was discharged home in stable condition. PHYSICAL EXAMINATION: On day of discharge, vital signs are stable and she is afebrile. GENERAL APPEARANCE: Well appearing in no acute distress. ABDOMEN: Soft, appropriately tender. Fundus is firm below the umbilicus. INCISION: Dressing dry and intact. EXTREMITIES: Negative for calf tenderness. DISCHARGE INSTRUCTIONS: 1. She was instructed to remain on pelvic rest for 6 weeks. 2. She was instructed to remove her dressing in 5-7 days. 3. She was instructed to report severe pain, heavy vaginal bleeding, fever or incisional issues. DISCHARGE MEDICATIONS: - ibuprofen - Percocet - omeprazole - vitamins. FOLLOWUP: Two weeks for an incision check [facility]. GME ATTESTATION My faculty preceptor for this patient encounter was physically present during the encounter and was fully available. All aspects of the patient interview, examination, medical decision making process, and medical care plan development were reviewed and approved by the faculty preceptor. The faculty preceptor is aware and concurs with the plan as stated in the body of this note and will attest to such by his/her cosignature. ZULEIMA
== END 2019-01-12 14:30 | disposition home or self-care (01) | DRG 788 ==
LOC: M LDI 05:10 → M OBS 11:41
PROVIDERS: ADMIT Specialist; ATTEND Specialist
PROC: 10D00Z1 Extraction of Products of Conception, Low, Open Approach (ICD-10-PCS; principal; 2019-01-09 07:30)
DX: O69.4XX0 Labor and delivery complicated by vasa previa, not applicable or unspecified (principal); Z3A.35 35 weeks gestation of pregnancy; Z37.0 Single live birth; O43.893 Other placental disorders, third trimester; O43.123 Velamentous insertion of umbilical cord, third trimester

== ENCOUNTER 2019-01-25 23:04 | Emergency (ER) | payer OTHER ==
[~2019-01-25] VITALS: Ht 180.3 cm; Wt 220.0 kg
[~2019-01-25 23:04] MED LIST changes: +IBUP-1022 PO; +OXYC1TAB23 PO
[2019-01-25 23:33] LABS: BASO % 0.6 % (0.0-1.0); EOS # 0.1 10^3/uL (0.0-0.5); EOS % 1.1 % (0.0-3.0); HEMATOCRIT 39.6 % (36.0-47.0); HEMOGLOBIN 13.3 g/dl (12.0-15.5); LYMPH # 3.1 10^3/uL (1.5-5.0); LYMPH % 44.9 % (24.0-44.0); MEAN CORPUSCULAR HEMOGLOBIN 30.6 pg (27.0-33.0); MEAN CORPUSCULAR HGB CONC 33.6 g/dl (32.0-36.5); MEAN CORPUSCULAR VOLUME 91.2 fl (80.0-96.0); MONO # 0.4 10^3/uL (0.0-0.8); NEUTROPHILS # 3.3 10^3/uL (1.5-8.5); NEUTROPHILS % 47.1 % (36.0-66.0); PLATELET COUNT, AUTOMATED 284 10^3/uL (150-450); RED BLOOD COUNT 4.34 10^6/uL (4.00-5.40)
[2019-01-25] MEDS ORDERED: NS 1,000 ML IV ONE (23:45)
[2019-01-25] MEDS ORDERED: ACETAMINOPHEN *IV* 1,000 MG in IV 1 EA IV ONE (23:45)
[2019-01-25 23:49] LABS: INR 0.92; PROTHROMBIN TIME 12.1 SECONDS (11.8-14.0)
[2019-01-26 00:05] LABS: ALBUMIN 3.4 GM/DL (3.2-5.2); ALT/SGPT 40 U/L (12-78); BILIRUBIN,DIRECT 0.1 MG/DL (0.0-0.2); BILIRUBIN,TOTAL 0.3 MG/DL (0.2-1.0); BLOOD UREA NITROGEN 13 MG/DL (7-18); CALCIUM LEVEL 9.1 MG/DL (8.5-10.1); CARBON DIOXIDE LEVEL 26 MEQ/L (21-32); CHLORIDE LEVEL 105 MEQ/L (98-107); CK-MB VALUE MASS 1.3 NG/ML (<3.6); CPK CREATINE PHOSPHOKINASE 89 U/L (26-192); CREATININE FOR GFR 0.84 MG/DL (0.55-1.30); GLOMERULAR FILTRATION RATE > 60.0 (>60); GLUCOSE, FASTING 87 MG/DL (70-100); LIPASE 210 U/L (73-393); MB/CK RELATIVE INDEX 1.46 (< OR =4); POTASSIUM SERUM 3.8 MEQ/L (3.5-5.1); SODIUM LEVEL 142 MEQ/L (136-145); TOTAL PROTEIN 6.6 GM/DL (6.4-8.2); TROPONIN I < 0.02 NG/ML (< 0.10)
--- NOTE | 2019-01-26 00:12 | ECGEPIP ---
[facility] - ED Test Date: 2019-01-25 Pat Name: MARIE KIM Department: Room: - Gender: Female Pt Skilled: NOHEMI : 1985 Requested By: Mitchell Pastor Order Number: [id number] Reading MD: Mitchell Gannon Measurements Intervals [place] Rate: 63 P: -4 GA: 154 QRS: 68 QRSD: 101 T: 44 QT: 393 QTc: 403 Interpretive Statements SINUS RHYTHM WITH OCCASIONAL SUPRAVENTRICULAR PREMATURE COMPLEXES NO PRIORS FOR COMPARISON Electronically Signed on 01-26-2019 0:12:11 EDT by Mitchell Gannon
[2019-01-26] MEDS ORDERED: MORPHINE 4 MG/ML 1ML VIAL/SYRINGE (J2270) IV ONE (01:30)
[2019-01-26] MEDS ORDERED: ONDANSETRON 4MG/2ML VIAL (J2405) IV ONE (01:30)
--- NOTE | 2019-01-26 01:58 | REPVR ---
PROCEDURE INFORMATION: Exam: US Abdomen Limited, Right Upper Quadrant Exam date and time: 01/26/2019 12:33 AM Clinical history: 33 years old, female; Abdominal pain; Epigastric; Additional info: Ruq pain TECHNIQUE: Imaging protocol: Real-time ultrasound of the abdomen with image documentation. Examination was focused on the right upper quadrant. COMPARISON: No relevant prior studies available. FINDINGS: Liver: The liver is increased in echogenicity, most commonly due to fatty infiltration, but other chronic liver diseases may have a similar appearance. Gallbladder: The gallbladder is distended. Echogenic gallstones and hypoechoic sludge are visualized within the gallbladder. There is a positive sonographic Bains sign. No significant gallbladder wall thickening. Common bile duct: No dilation. The common bile duct measures 0.3 cm in diameter. Pancreas: The pancreas is obscured by bowel gas. Right kidney: The right kidney measures 11.9 x 5.6 x 5.3 cm. No hydronephrosis. There is a hypoechoic prominent column of Eladio versus duplication of the right renal collecting system. At the lower pole of the right kidney, there is a 2.3 x 1.6 x 1.7 cm hypoechoic mildly complex cyst with a peripheral hyperechoic suggested calcification. IMPRESSION: 1. The gallbladder is distended. Gallstones and sludge are visualized within the gallbladder. There is a positive sonographic Bains sign. No significant gallbladder wall thickening. Clinical correlation recommended. 2. The liver is increased in echogenicity, most commonly due to fatty infiltration, but other chronic liver diseases may have a similar appearance. 3. There is a hypoechoic prominent column of Eladio versus duplication of the right renal collecting system. At the lower pole of the right kidney, there is a 2.3 x 1.6 x 1.7 cm mildly complex cyst with a peripheral suggested calcification. Follow-up ultrasonography recommended. Electronically signed by: José Miguel Haynes On 01/26/2019 01:58:10 AM
[2019-01-26] MEDS ORDERED: NORCO 5/325MG TABLET (BULK FOR ED) PO ONE (02:15)
--- NOTE | 2019-01-26 02:30 | REP ---
Clinical: Acute chest pain . Comparison: None . Findings: The mediastinum and cardiac silhouette are stable and within normal limits for portable technique. The lung roland are clear without acute consolidation, effusion, or pneumothorax. Skeletal structures are intact. Impression: No acute cardiopulmonary process appreciated. Electronically Signed by Neal Gates MD 01/26/2019 02:23 A
[2019-01-26 02:43] VITALS: BP 96/61
--- NOTE | 2019-01-26 06:47 | ED PDOC ---
Post-Departure Follow-Up dr jaylene mauricio faxed formal report of gb us for fu Zina Neal MD Jan 26, 2019 06:47
== END 2019-01-26 02:45 | disposition home or self-care (01) ==
LOC: M ED 23:04
DX: K80.20 Calculus of gallbladder without cholecystitis without obstruction (principal); N28.1 Cyst of kidney, acquired; Z91.010 Allergy to peanuts; Z91.048 Other nonmedicinal substance allergy status; Z91.030 Bee allergy status; Z79.899 Other long term (current) drug therapy
CPT/HCPCS: 36415; 71045; 76705; 80048; 80076; 82550; 82553; 83690; 84484; 85025; 85610; 93005; 93041; 94760; 96361; 96365; 96375; 99285; J0131; J2270; J2405

== ENCOUNTER 2019-03-01 11:19 | Day surgery (SDC) | payer OTHER ==
[~2019-03-01] VITALS: Ht 180.3 cm; Wt 99.2 kg
[~2019-03-01 11:19] MED LIST changes: -AZIT500T2 PO; +AZIT500T5 PO; +CALCTAB89 PO; +LR 1,000 ML IV ONE; +MULTCAP PO; -OMEP40CA2 PO; +OMEP40CA97 PO; +VITA500C24 PO
[2019-03-01] MEDS ORDERED: fentaNYL 250 MCG/5 ML INJECTION (J3010) As Ordered ONE (11:28)
[2019-03-01] MEDS ORDERED: ROCURONIUM BROMIDE 50 MG/5 ML VIAL As Ordered ONE ×2 (11:28→11:59)
[2019-03-01] MEDS ORDERED: LIDOCAINE 2% INJ 100 MG/5 ML SDV (FOR ANES.) As Ordered ONE (11:28)
[2019-03-01] MEDS ORDERED: PROPOFOL 200 MG/20 ML VIAL As Ordered ONE (11:28)
[2019-03-01] MEDS ORDERED: MIDAZOLAM INJ 2 MG/2 ML VIAL (J2250) As Ordered ONE (11:29)
[2019-03-01] MEDS ORDERED: COLA100C5 PO (12:12)
[2019-03-01] MEDS ORDERED: SCOPOLAMINE 1MG TRANSDERMAL PATCH As Ordered ONE (13:34)
[2019-03-01] MEDS ORDERED: SCOPOLAMINE 1MG TRANSDERMAL PATCH TOP ONE (13:45)
[2019-03-01] MEDS ORDERED: BUPIVACAINE HCL 0.25% 30 ML VIAL As Ordered ONE ×2 (14:48→15:26)
[2019-03-01] MEDS ORDERED: ePHEDrine SULFATE 25 MG/5 ML(5MG/ML) SYRINGE As Ordered ONE (15:33)
[2019-03-01] MEDS ORDERED: GLYCOPYRROLATE INJ 0.2 MG/ML 2 ML VIAL As Ordered ONE (15:42)
[2019-03-01] MEDS ORDERED: ACETAMINOPHEN 1000MG 100ML IV BTL (OFIRMEV) (J0131 PER 10MG) As Ordered ONE (16:12)
[2019-03-01] MEDS ORDERED: KETOROLAC 60 MG/2 ML VIAL (J1885) As Ordered ONE (16:12)
[2019-03-01] MEDS ORDERED: dexameTHASONE 4 MG/ML 1ML VIAL (J1100) As Ordered ONE (16:12)
[2019-03-01] MEDS ORDERED: METOCLOPRAMIDE INJ 10MG/2ML VIAL (J2765) As Ordered ONE (16:12)
[2019-03-01] MEDS ORDERED: ONDANSETRON 4MG/2ML VIAL (J2405) As Ordered ONE ×2 (16:12→17:08)
[2019-03-01] MEDS ORDERED: SUGAMMADEX SODIUM 500 MG/5 ML VIAL (BRIDION) As Ordered ONE (16:19)
[2019-03-01] MEDS ORDERED: fentaNYL 100 MCG/2 ML INJECTION (J3010) IV PRN (17:00)
[2019-03-01] MEDS ORDERED: LR 1,000 ML IV SCH (17:00)
[2019-03-01] MEDS ORDERED: oxyCODONE 5MG TAB PO PRN (17:00)
[2019-03-01] MEDS ORDERED: ONDANSETRON 4MG/2ML VIAL (J2405) IV PRN (17:00)
[2019-03-01] MEDS ORDERED: HYDROMORPHONE HCL 0.5 MG/ 0.5 ML SYRINGE (J1170 PER 1) As Ordered ONE (17:09)
[2019-03-01] MEDS: HYDROMORPHONE HCL 0.5 MG/ 0.5 ML SYRINGE (J1170 PER 1) IV PRN ×4 (17:15→17:40)
[2019-03-01] MEDS ORDERED: IBUPROFEN 600 MG TAB PO PRN (18:00)
[2019-03-01] MEDS ORDERED: ACETAMINOPHEN TAB 650MG DOSE (2X325MG) PO PRN (18:00)
[2019-03-01] MEDS ORDERED: PERCOCET 5MG/325MG TAB PO PRN (18:00)
[2019-03-01] MEDS ORDERED: oxyCODONE 5MG TAB As Ordered ONE (18:37)
[2019-03-01 19:40] VITALS: BP 111/58
--- NOTE | 2019-03-02 20:43 | RO ---
DATE OF PROCEDURE: 03/01/2019 PREOPERATIVE DIAGNOSIS: Symptomatic gallstones. POSTOPERATIVE DIAGNOSIS: Symptomatic gallstones. PROCEDURE PERFORMED: Laparoscopic cholecystectomy. SURGEON: Dr. Iggy Gorman INSULATION WORKER: ANESTHESIA: General. INDICATIONS FOR THE PROCEDURE: The patient is a 33-year-old woman who is approximately 7 weeks . She reports having had several episodes of severe epigastric and right upper quadrant abdominal pain. Ultrasound confirmed cholelithiasis, and she is now for a laparoscopic cholecystectomy. DESCRIPTION OF PROCEDURE: The patient was brought to the operating room and placed on the table in a supine position. She was placed under general endotracheal anesthesia. The patient's abdomen was prepped and draped in a sterile fashion. 0.25% Marcaine was infiltrated (dictation cut off). A short transverse supraumbilical incision was made. A Veress needle was inserted, and after a positive hanging drop test, the abdomen was inflated with carbon dioxide gas. The fascia was then incised along the midline, and a 12 mm port was placed without difficulty. Initial inspection with the camera showed a normal appearing liver. Visualized portions of the small and large bowel appeared normal. The fundus of the gallbladder was partially seen. Two 5 mm trocars were placed in the right upper quadrant, and a third 5 mm trocar was placed in the left upper quadrant. The patient was tilted to a slight reverse Trendelenburg position and rolled to the left. Graspers were inserted. The edge of the liver was elevated, and the gallbladder was grasped and elevated. The gallbladder was full but not tightly distended. The gallbladder wall was perhaps slightly thickened but not acutely inflamed. There were some attachments of the gallbladder to the omentum, and these were divided using the hook cautery. With further elevation of the gallbladder, dissection began in the pericholecystic tissues at the gallbladder neck. The peritoneum was opened and the fibrofatty tissue was divided. With careful dissection through these tissues, the cystic duct was clearly identified. This was dissected free circumferentially and then doubly clipped with hemoclips and divided. A single branch of the cholecystic artery was identified approximately a [address] up the medial wall of the gallbladder. This was doubly clipped and divided. The gallbladder was then dissected free from the gallbladder bed using cautery dissection. The gallbladder was not perforated in the course of dissection. The gallbladder was placed in an Endopouch. The right upper quadrant was then irrigated and inspected, and there was no evidence of bleeding or bile leak. The patient was returned to a flat position. The abdomen was deflated and the trocars were removed. The gallbladder was recovered through the supraumbilical site. There were a few very small stones palpable within the gallbladder, and this was sent for permanent pathology. The fascia at the supraumbilical site was closed with interrupted simple sutures of #2-0 Vicryl. The skin incisions were then closed with #5-0 Vicryl and Steri-Strips. Light dressings were applied. The patient tolerated the procedure well without apparent complication. She was awakened in the operating room, extubated and moved to the recovery room in stable condition.
== END 2019-03-01 19:40 | disposition home or self-care (01) ==
LOC: M SDC 11:19
PROVIDERS: ATTEND Surgery
DX: K80.10 Calculus of gallbladder with chronic cholecystitis without obstruction (principal); K21.9 Gastro-esophageal reflux disease without esophagitis; Z91.030 Bee allergy status; Z91.010 Allergy to peanuts; Z91.048 Other nonmedicinal substance allergy status; E28.2 Polycystic ovarian syndrome; Z79.899 Other long term (current) drug therapy
CPT/HCPCS: 47562; 81025; 88304; J0131; J1100; J1170; J1885; J2250; J2405; J2765; J3010

== ENCOUNTER → 2021-05-28 | Outpatient (CLI) | payer OTHER ==
[~2021-05-28] MED LIST changes: +COLA100C5 PO; -LR 1,000 ML IV ONE; +OMEP40CA4 PO; -OMEP40CA97 PO
[2021-05-28 11:12] LABS: BASO % 0.3 % (0.0-1.0); EOS % 0.5 % (0.0-3.0); HEMATOCRIT 41.1 % (36.0-47.0); HEMOGLOBIN 13.8 g/dl (12.0-15.5); LYMPH # 1.9 10^3/uL (1.5-5.0); LYMPH % 30.9 % (24.0-44.0); MEAN CORPUSCULAR HEMOGLOBIN 30.7 pg (27.0-33.0); MEAN CORPUSCULAR HGB CONC 33.6 g/dl (32.0-36.5); MEAN CORPUSCULAR VOLUME 91.3 fl (80.0-96.0); MONO # 0.3 10^3/uL (0.0-0.8); MONO % 5.2 % (2.0-8.0); NEUTROPHILS # 3.7 10^3/uL (1.5-8.5); NEUTROPHILS % 62.6 % (36.0-66.0); PLATELET COUNT, AUTOMATED 284 10^3/uL (150-450)
[2021-05-28 13:55] LABS: HEMOGLOBIN A1c 4.9 %
[2021-05-28 14:27] LABS: ALT/SGPT 21 U/L (12-78); BLOOD UREA NITROGEN 11 MG/DL (7-18); CARBON DIOXIDE LEVEL 30 MEQ/L (21-32); CHLORIDE LEVEL 106 MEQ/L (98-107); CREATININE FOR GFR 0.85 MG/DL (0.55-1.30); GLOMERULAR FILTRATION RATE > 60.0 (>60); GLUCOSE, FASTING 98 MG/DL (70-100); POTASSIUM SERUM 4.3 MEQ/L (3.5-5.1); SODIUM LEVEL 141 MEQ/L (136-145)
[2021-05-28 14:28] LABS: ALBUMIN 4.2 GM/DL (3.2-5.2); BILIRUBIN,TOTAL 0.6 MG/DL (0.2-1.0); TOTAL PROTEIN 7.1 GM/DL (6.4-8.2)
[2021-05-29 10:49] LABS: LUTEINIZING HORMONE 21.1 mIU/mL
[2021-05-29 10:50] LABS: FOLLICLE STIMULATING HORMONE 8.2 mIU/mL; VITAMIN B12 LEVEL 337 PG/ML (247-911)
== END ==
LOC: M LAB 10:17
PROVIDERS: ATTEND Family Medicine
DX: D51.8 Other vitamin B12 deficiency anemias (principal); E28.2 Polycystic ovarian syndrome

== ENCOUNTER → 2021-08-19 | Outpatient (CLI) | payer OTHER ==
[~2021-08-19] MED LIST changes: +OXYC1TAB23
[2021-08-19 10:23] LABS: BASO % 0.4 % (0.0-1.0); EOS # 0.1 10^3/uL (0.0-0.5); EOS % 1.5 % (0.0-3.0); HEMATOCRIT 43.1 % (36.0-47.0); HEMOGLOBIN 14.2 g/dl (12.0-15.5); LYMPH # 1.4 10^3/uL (1.5-5.0); LYMPH % 29.9 % (24.0-44.0); MEAN CORPUSCULAR HEMOGLOBIN 30.9 pg (27.0-33.0); MEAN CORPUSCULAR HGB CONC 32.9 g/dl (32.0-36.5); MEAN CORPUSCULAR VOLUME 93.7 fl (80.0-96.0); MONO # 0.3 10^3/uL (0.0-0.8); MONO % 6.9 % (2.0-8.0); NEUTROPHILS # 2.8 10^3/uL (1.5-8.5); NEUTROPHILS % 61.1 % (36.0-66.0); PLATELET COUNT, AUTOMATED 287 10^3/uL (150-450); WHITE BLOOD COUNT 4.6 10^3/uL (4.0-10.0)
[2021-08-19 10:48] LABS: PERCENT SATURATION 20.5 % (13.2-45.0)
[2021-08-19 10:55] LABS: FOLATE 12.7 NG/ML
== END ==
LOC: M LAB 08:51
PROVIDERS: ATTEND Nurse Practitioner Adult Health
DX: N94.6 Dysmenorrhea, unspecified (principal)

== ENCOUNTER 2021-08-20 09:54 | Emergency (ER) | payer OTHER ==
[~2021-08-20] VITALS: Ht 177.8 cm; Wt 100.0 kg
[~2021-08-20 09:54] MED LIST changes: -OXYC1TAB23
[2021-08-20] MEDS ORDERED: OXYC1TAB23 (10:02)
[2021-08-20 10:26] LABS: BASO % 0.3 % (0.0-1.0); EOS # 0.2 10^3/uL (0.0-0.5); HEMATOCRIT 40.3 % (36.0-47.0); HEMOGLOBIN 13.9 g/dl (12.0-15.5); LYMPH # 1.6 10^3/uL (1.5-5.0); LYMPH % 19.9 % (24.0-44.0); MEAN CORPUSCULAR HEMOGLOBIN 31.5 pg (27.0-33.0); MEAN CORPUSCULAR HGB CONC 34.5 g/dl (32.0-36.5); MEAN CORPUSCULAR VOLUME 91.4 fl (80.0-96.0); MONO # 0.5 10^3/uL (0.0-0.8); MONO % 5.7 % (2.0-8.0); NEUTROPHILS # 5.7 10^3/uL (1.5-8.5); NEUTROPHILS % 71.7 % (36.0-66.0); PLATELET COUNT, AUTOMATED 300 10^3/uL (150-450); RED BLOOD COUNT 4.41 10^6/uL (4.00-5.40); WHITE BLOOD COUNT 7.9 10^3/uL (4.0-10.0)
[2021-08-20 10:59] LABS: ALBUMIN 3.9 GM/DL (3.2-5.2); ALT/SGPT 205 U/L (12-78); BILIRUBIN,DIRECT 0.4 MG/DL (0.0-0.2); BILIRUBIN,TOTAL 0.9 MG/DL (0.2-1.0); LIPASE 125 U/L (73-393); TOTAL PROTEIN 6.9 GM/DL (6.4-8.2)
[2021-08-20] MEDS ORDERED: KETOROLAC 30 MG/ML 1ML VIAL IV ONE (11:10)
[2021-08-20] MEDS ORDERED: ONDANSETRON 4MG/2ML VIAL IV ONE (11:10)
[2021-08-20] MEDS ORDERED: ISOVUE-370 76% 100ML VIAL As Ordered ONE (11:12)
[2021-08-20 11:24] LABS: HCG, SERUM QUALITATIVE NEGATIVE (NEGATIVE)
[2021-08-20] MEDS: GASTROGRAFIN SOLUTION 30ML PO SCH ×2 (11:35→12:04)
[2021-08-20] MEDS ORDERED: ACETAMINOPHEN 325 MG TAB PO ONE (13:20)
[2021-08-20 15:34] VITALS: BP 118/70
== END 2021-08-20 15:45 | disposition home or self-care (01) ==
LOC: M ED 09:54
DX: R10.84 Generalized abdominal pain (principal); R11.2 Nausea with vomiting, unspecified; K76.0 Fatty (change of) liver, not elsewhere classified; R91.8 Other nonspecific abnormal finding of lung field; N28.1 Cyst of kidney, acquired; N83.292 Other ovarian cyst, left side; K21.9 Gastro-esophageal reflux disease without esophagitis; E28.2 Polycystic ovarian syndrome; Z90.49 Acquired absence of other specified parts of digestive tract; Z91.030 Bee allergy status; Z79.899 Other long term (current) drug therapy
CPT/HCPCS: 74177; 76705; 76830; 76856; 80047; 80076; 81001; 83690; 84702; 84703; 85025; 93976; 96374; 96375; 99284; J1885; J2405; Q9967

== ENCOUNTER → 2021-09-11 | Outpatient (CLI) | payer OTHER ==
[~2021-09-11] MED LIST changes: +OXYC1TAB23
[2021-09-11 10:09] LABS: BASO % 0.5 % (0.0-1.0); EOS # 0.1 10^3/uL (0.0-0.5); EOS % 1.4 % (0.0-3.0); HEMATOCRIT 41.5 % (36.0-47.0); HEMOGLOBIN 13.9 g/dl (12.0-15.5); LYMPH # 2.1 10^3/uL (1.5-5.0); LYMPH % 36.2 % (24.0-44.0); MEAN CORPUSCULAR HEMOGLOBIN 30.6 pg (27.0-33.0); MEAN CORPUSCULAR HGB CONC 33.5 g/dl (32.0-36.5); MEAN CORPUSCULAR VOLUME 91.4 fl (80.0-96.0); MONO # 0.4 10^3/uL (0.0-0.8); MONO % 6.4 % (2.0-8.0); NEUTROPHILS # 3.2 10^3/uL (1.5-8.5); NEUTROPHILS % 55.2 % (36.0-66.0); PLATELET COUNT, AUTOMATED 283 10^3/uL (150-450); RED BLOOD COUNT 4.54 10^6/uL (4.00-5.40); WHITE BLOOD COUNT 5.7 10^3/uL (4.0-10.0)
[2021-09-11 10:49] LABS: ALT/SGPT 22 U/L (12-78); BILIRUBIN,TOTAL 0.5 MG/DL (0.2-1.0); BLOOD UREA NITROGEN 9 MG/DL (7-18); CALCIUM LEVEL 9.1 MG/DL (8.5-10.1); CARBON DIOXIDE LEVEL 30 MEQ/L (21-32); CHLORIDE LEVEL 106 MEQ/L (98-107); CREATININE FOR GFR 0.81 MG/DL (0.55-1.30); GLOMERULAR FILTRATION RATE > 60.0 (>60); GLUCOSE, FASTING 92 MG/DL (70-100); POTASSIUM SERUM 4.3 MEQ/L (3.5-5.1); SODIUM LEVEL 137 MEQ/L (136-145); TOTAL PROTEIN 6.8 GM/DL (6.4-8.2); VITAMIN B12 LEVEL 353 PG/ML (247-911)
[2021-09-11 11:26] LABS: HEPATITIS B CORE ANTIBODY IGM NEGATIVE (NEGATIVE); HEPATITIS C VIRUS ABY INDEX 0.1 INDEX (<0.8)
== END ==
LOC: M LAB 09:32
PROVIDERS: ATTEND Family Medicine
DX: E53.8 Deficiency of other specified B group vitamins (principal); D64.9 Anemia, unspecified

== ENCOUNTER → 2021-12-29 | Outpatient (CLI) | payer OTHER ==
[~2021-12-29] MED LIST changes: +ISOVUE-370 76% 100ML VIAL As Ordered ONE
== END ==
LOC: M RAD 10:05
PROVIDERS: ATTEND Family Medicine
DX: R91.1 Solitary pulmonary nodule (principal)

== ENCOUNTER → 2022-07-15 | Outpatient (CLI) | payer OTHER ==
[~2022-07-15] MED LIST changes: -ISOVUE-370 76% 100ML VIAL As Ordered ONE
[2022-07-15 11:43] LABS: BASO % 0.3 % (0.0-1.0); EOS # 0.1 10^3/uL (0.0-0.5); EOS % 1.2 % (0.0-3.0); HEMATOCRIT 41.6 % (36.0-47.0); HEMOGLOBIN 13.9 g/dl (12.0-15.5); LYMPH # 2.4 10^3/uL (1.5-5.0); LYMPH % 37.3 % (24.0-44.0); MEAN CORPUSCULAR HGB CONC 33.4 g/dl (32.0-36.5); MEAN CORPUSCULAR VOLUME 92.9 fl (80.0-96.0); MONO # 0.4 10^3/uL (0.0-0.8); MONO % 6.2 % (2.0-8.0); NEUTROPHILS # 3.5 10^3/uL (1.5-8.5); NEUTROPHILS % 54.5 % (36.0-66.0); PLATELET COUNT, AUTOMATED 280 10^3/uL (150-450); RED BLOOD COUNT 4.48 10^6/uL (4.00-5.40); WHITE BLOOD COUNT 6.4 10^3/uL (4.0-10.0)
[2022-07-15 12:10] LABS: HEMOGLOBIN A1c 5.1 % (4.0-6.0)
[2022-07-15 12:12] LABS: ALBUMIN 4.1 G/DL (3.2-5.2); ALKALINE PHOSPHATASE 53 U/L (46-116); ALT/SGPT 18 U/L (7.0-40); AST/SGOT 14 U/L (<34); BILIRUBIN,TOTAL 0.7 MG/DL (0.3-1.2); BLOOD UREA NITROGEN 13 MG/DL (9-23); CALCIUM LEVEL 8.9 MG/DL (8.5-10.1); CARBON DIOXIDE LEVEL 26 MMOL/L (20-31); CHLORIDE LEVEL 106 MMOL/L (98-107); CHOLESTEROL LEVEL 177 MG/DL (<200); CREATININE FOR GFR 0.84 MG/DL (0.55-1.30); GLOMERULAR FILTRATION RATE > 60.0 (>60); GLUCOSE, FASTING 80 MG/DL (60-100); LDL CHOLESTEROL 92.6 MG/DL (<100); POTASSIUM SERUM 4.3 MMOL/L (3.5-5.1); SODIUM LEVEL 136 MMOL/L (136-145); TOTAL PROTEIN 6.7 G/DL (5.7-8.2); TRIGLYCERIDES LEVEL 162 MG/DL (<150)
[2022-07-15 12:13] LABS: FREE T4 0.99 NG/DL (0.89-1.76); TOTAL 25(OH) VITAMIN D 29.2 NG/ML (20.0-100.0); VITAMIN B12 LEVEL 751 PG/ML (211-911)
[2022-07-15 12:14] LABS: THYROID STIMULATING HORMONE 1.238 uIU/ML (0.55-4.78)
== END ==
LOC: M LAB 10:35
PROVIDERS: ATTEND Family Medicine
DX: D51.8 Other vitamin B12 deficiency anemias (principal)

== ENCOUNTER 2022-08-06 09:33 | Emergency (ER) | payer OTHER ==
[~2022-08-06] VITALS: Ht 177.8 cm; Wt 102.4 kg
[2022-08-06] MEDS ORDERED: LEXA5TAB13 (09:42)
[2022-08-06] MEDS ORDERED: NS 1,000 ML IV ONE (10:25)
[2022-08-06] MEDS ORDERED: ONDANSETRON 4MG 2ML VIAL IV ONE (10:25)
[2022-08-06 10:47] LABS: BASO % 0.3 % (0.0-1.0); EOS % 0.5 % (0.0-3.0); HEMATOCRIT 42.6 % (36.0-47.0); HEMOGLOBIN 14.5 g/dl (12.0-15.5); LYMPH # 1.1 10^3/uL (1.5-5.0); LYMPH % 27.9 % (24.0-44.0); MEAN CORPUSCULAR HEMOGLOBIN 30.7 pg (27.0-33.0); MEAN CORPUSCULAR VOLUME 90.1 fl (80.0-96.0); MONO # 0.4 10^3/uL (0.0-0.8); MONO % 10.1 % (2.0-8.0); NEUTROPHILS # 2.4 10^3/uL (1.5-8.5); NEUTROPHILS % 60.9 % (36.0-66.0); PLATELET COUNT, AUTOMATED 251 10^3/uL (150-450); RED BLOOD COUNT 4.73 10^6/uL (4.00-5.40); WHITE BLOOD COUNT 3.9 10^3/uL (4.0-10.0)
[2022-08-06 11:19] LABS: LIPASE 32 U/L (12-53)
[2022-08-06 11:21] LABS: ALKALINE PHOSPHATASE 53 U/L (46-116); ALT/SGPT 56 U/L (7.0-40); AST/SGOT 38 U/L (<34); BILIRUBIN,DIRECT 0.3 MG/DL (<0.4); BILIRUBIN,TOTAL 0.8 MG/DL (0.3-1.2); BLOOD UREA NITROGEN 9 MG/DL (9-23); CALCIUM LEVEL 8.6 MG/DL (8.5-10.1); CARBON DIOXIDE LEVEL 25 MMOL/L (20-31); CHLORIDE LEVEL 104 MMOL/L (98-107); CREATININE FOR GFR 0.93 MG/DL (0.55-1.30); GLOMERULAR FILTRATION RATE > 60.0 (>60); GLUCOSE, FASTING 94 MG/DL (60-100); POTASSIUM SERUM 3.7 MMOL/L (3.5-5.1); SODIUM LEVEL 137 MMOL/L (136-145); TOTAL PROTEIN 6.8 G/DL (5.7-8.2)
[2022-08-06 11:34] LABS: HCG, SERUM QUANTITATIVE 12079.6 MIU/ML (<4.2)
[2022-08-06 12:29] VITALS: BP 142/74
== END 2022-08-06 13:05 | disposition home or self-care (01) ==
LOC: M ED 09:33
DX: O21.9 Vomiting of pregnancy, unspecified (principal); Z3A.01 Less than 8 weeks gestation of pregnancy; Z79.899 Other long term (current) drug therapy; Z91.010 Allergy to peanuts; Z91.030 Bee allergy status
CPT/HCPCS: 80048; 80076; 81001; 83690; 84702; 85025; 87086; 87507; 96361; 96374; 99284; J2405

== ENCOUNTER → 2022-09-15 | Outpatient (CLI) | payer OTHER ==
[~2022-09-15] MED LIST changes: +LEXA5TAB13
[2022-09-15 14:23] LABS: HEMATOCRIT 39.3 % (36.0-47.0); HEMOGLOBIN 12.8 g/dl (12.0-15.5); MEAN CORPUSCULAR HEMOGLOBIN 30.8 pg (27.0-33.0); MEAN CORPUSCULAR HGB CONC 32.6 g/dl (32.0-36.5); MEAN CORPUSCULAR VOLUME 94.5 fl (80.0-96.0); PLATELET COUNT, AUTOMATED 291 10^3/uL (150-450); RED BLOOD COUNT 4.16 10^6/uL (4.00-5.40); WHITE BLOOD COUNT 8.5 10^3/uL (4.0-10.0)
[2022-09-15 15:25] LABS: HIV 1&2 SCREEN NEGATIVE (NEGATIVE)
[2022-09-15 15:33] LABS: HEPATITIS C VIRUS ABY INDEX < 0.0 INDEX (<0.8)
[2022-09-15 15:38] LABS: GC DNA AMPLIFICATION NEGATIVE (NEGATIVE)
== END ==
LOC: M PLALAB 10:04
PROVIDERS: ATTEND Advanced Practice Midwife
DX: Z34.81 Encounter for supervision of other normal pregnancy, first trimester (principal)

== ENCOUNTER → 2022-10-21 | Outpatient (REF) | payer OTHER | LOC: M SFHCWAGY 10:01 | PROVIDERS: ATTEND Specialist | DX: Z34.82 Encounter for supervision of other normal pregnancy, second trimester (principal) ==

== ENCOUNTER → 2022-11-09 | Outpatient (CLI) | payer OTHER | LOC: M WHC 08:16 | PROVIDERS: ATTEND Specialist | DX: Z34.82 Encounter for supervision of other normal pregnancy, second trimester (principal) ==

== ENCOUNTER → 2022-11-29 | Outpatient (CLI) | payer OTHER | LOC: M WHC 10:59 | PROVIDERS: ATTEND Specialist | DX: Z34.82 Encounter for supervision of other normal pregnancy, second trimester (principal) ==

== ENCOUNTER → 2022-11-30 | Outpatient (REF) | payer OTHER | LOC: M SFHCWAGY 09:54 | PROVIDERS: ATTEND Specialist | DX: R30.0 Dysuria (principal) ==

== ENCOUNTER 2022-12-28 13:31 | Outpatient (CLI) | payer OTHER ==
[~2022-12-28] VITALS: Ht 177.8 cm; Wt 117.5 kg
[2022-12-28] MEDS ORDERED: GNP250TA9 PO (13:49)
[2022-12-28] MEDS ORDERED: OMEP40CA4 PO (13:49)
[2022-12-28 13:50] VITALS: BP 123/59
[2022-12-28] MEDS ORDERED: HOME MED LIST COMPLETE! XX SCH (13:50)
[2022-12-28] MEDS ORDERED: ACETAMINOPHEN 500 MG TAB PO ONE (14:05)
[2022-12-28 14:18] LABS: APPEARANCE, URINE CLOUDY (CLEAR); BACTERIA, URINE AUTO 2+ (NEGATIVE); BILIRUBIN, URINE AUTO NEGATIVE (NEGATIVE); BLOOD, URINE BLOOD 1+ (NEGATIVE); COLOR, URINE YELLOW (YELLOW); GLUCOSE, URINE (UA) AUTO NEGATIVE (NEGATIVE); KETONE, URINE AUTO NEGATIVE (NEGATIVE); LEUKOCYTE ESTERASE, URINE AUTO 3+ (NEGATIVE); NITRITE, URINE AUTO NEGATIVE (NEGATIVE); PROTEIN, URINE AUTO 1+ mg/dL (NEGATIVE); RBC, URINE AUTO 64 /HPF (0-3); SPECIFIC GRAVITY URINE AUTO 1.008 (1.002-1.035); SQUAMOUS EPITHELIAL CELL UR AU 1 /HPF (0-6); UROBILINOGEN, URINE AUTO 0.2 mg/dL (0.0-2.0); WBC, URINE AUTO TNTC /HPF (0-3)
[2022-12-28 15:08] LABS: BASO % 0.2 % (0.0-1.0); EOS % 0.3 % (0.0-3.0); HEMATOCRIT 33.1 % (36.0-47.0); HEMOGLOBIN 10.9 g/dl (12.0-15.5); LYMPH # 0.9 10^3/uL (1.5-5.0); LYMPH % 9.1 % (24.0-44.0); MEAN CORPUSCULAR HEMOGLOBIN 31.5 pg (27.0-33.0); MEAN CORPUSCULAR HGB CONC 32.9 g/dl (32.0-36.5); MEAN CORPUSCULAR VOLUME 95.7 fl (80.0-96.0); MONO # 0.9 10^3/uL (0.0-0.8); MONO % 8.8 % (2.0-8.0); NEUTROPHILS # 8.4 10^3/uL (1.5-8.5); NEUTROPHILS % 81.2 % (36.0-66.0); PLATELET COUNT, AUTOMATED 240 10^3/uL (150-450); RED BLOOD COUNT 3.46 10^6/uL (4.00-5.40); WHITE BLOOD COUNT 10.3 10^3/uL (4.0-10.0)
[2022-12-28 15:10] VITALS: BP 122/58
[2022-12-28] MEDS ORDERED: ONDANSETRON 4MG TAB PO ONE (16:05)
[2022-12-28] MEDS ORDERED: oxyCODONE 5MG TAB PO ONE (16:05)
[2022-12-28] MEDS ORDERED: oxyCODONE 5MG TAB As Ordered ONE (16:11)
[2022-12-28] MEDS ORDERED: CEPHALEXIN 500 MG CAP PO ONE (16:30)
[2022-12-28] MEDS ORDERED: PHENAZOPYRIDINE 100 MG TAB PO ONE (16:45)
== END 2022-12-28 17:04 | disposition home or self-care (01) ==
LOC: M LDO 13:31
PROVIDERS: ATTEND Specialist
DX: O23.42 Unspecified infection of urinary tract in pregnancy, second trimester (principal); N39.0 Urinary tract infection, site not specified; Z3A.26 26 weeks gestation of pregnancy
CPT/HCPCS: 36415; 59025; 76775; 81001; 85025; 87088; 87186; G0463

== ENCOUNTER 2023-01-06 07:02 | Outpatient (CLI) | payer OTHER ==
[~2023-01-06] VITALS: Ht 177.8 cm; Wt 117.2 kg
[~2023-01-06 07:02] MED LIST changes: +GNP250TA9 PO; -LEXA5TAB13; +LEXA5TAB13 PO
[2023-01-06 07:15] VITALS: BP 119/65
[2023-01-06] MEDS ORDERED: HOME MED LIST COMPLETE! XX SCH (07:25)
[2023-01-06 09:24] VITALS: BP 125/76
[2023-01-06] MEDS ORDERED: ONDANSETRON 4MG TAB PO ONE (09:55)
== END 2023-01-06 10:29 | disposition home or self-care (01) ==
LOC: M LDO 07:02
PROVIDERS: ATTEND Advanced Practice Midwife
DX: O26.853 Spotting complicating pregnancy, third trimester (principal); O09.523 Supervision of elderly multigravida, third trimester; O34.218 Maternal care for other type scar from previous cesarean delivery; Z3A.28 28 weeks gestation of pregnancy
CPT/HCPCS: 59025; 76815; 76817; 76820; G0463

== ENCOUNTER → 2023-01-11 | Outpatient (CLI) | payer OTHER ==
[2023-01-11 15:01] LABS: HEMATOCRIT 33.2 % (36.0-47.0); HEMOGLOBIN 10.5 g/dl (12.0-15.5); MEAN CORPUSCULAR HEMOGLOBIN 31.2 pg (27.0-33.0); MEAN CORPUSCULAR HGB CONC 31.6 g/dl (32.0-36.5); MEAN CORPUSCULAR VOLUME 98.5 fl (80.0-96.0); PLATELET COUNT, AUTOMATED 279 10^3/uL (150-450); RED BLOOD COUNT 3.37 10^6/uL (4.00-5.40); WHITE BLOOD COUNT 7.7 10^3/uL (4.0-10.0)
[2023-01-11 15:06] LABS: APPEARANCE, URINE HAZY (CLEAR); BACTERIA, URINE AUTO 2+ (NEGATIVE); BILIRUBIN, URINE AUTO NEGATIVE (NEGATIVE); BLOOD, URINE BLOOD NEGATIVE (NEGATIVE); COLOR, URINE YELLOW (YELLOW); GLUCOSE, URINE (UA) AUTO NEGATIVE (NEGATIVE); KETONE, URINE AUTO NEGATIVE (NEGATIVE); LEUKOCYTE ESTERASE, URINE AUTO 3+ (NEGATIVE); MUCUS, URINE SMALL (NEGATIVE); NITRITE, URINE AUTO NEGATIVE (NEGATIVE); PROTEIN, URINE AUTO 1+ mg/dL (NEGATIVE); RBC, URINE AUTO 0 /HPF (0-3); SPECIFIC GRAVITY URINE AUTO 1.018 (1.002-1.035); SQUAMOUS EPITHELIAL CELL UR AU 2 /HPF (0-6); UROBILINOGEN, URINE AUTO 0.2 mg/dL (0.0-2.0); WBC, URINE AUTO TNTC /HPF (0-3)
[2023-01-11 16:17] LABS: GC DNA AMPLIFICATION NEGATIVE (NEGATIVE)
== END ==
LOC: M PLALAB 08:12
PROVIDERS: ATTEND Family Medicine
DX: R30.0 Dysuria (principal)

== ENCOUNTER → 2023-03-04 | Outpatient (REF) | payer OTHER | LOC: M SFHCWAGY 15:28 | PROVIDERS: ATTEND Specialist | DX: Z34.83 Encounter for supervision of other normal pregnancy, third trimester (principal) ==

== ENCOUNTER → 2024-09-14 | Outpatient (CLI) | payer OTHER ==
[~2024-09-14] MED LIST changes: +IBUP80TA PO; +ONDA-282 SL; +STOO100C30 PO
== END ==
LOC: M RAD 12:36
PROVIDERS: ATTEND Family Medicine
DX: R10.2 Pelvic and perineal pain (principal)

== ENCOUNTER → 2025-04-09 | Outpatient (CLI) | payer OTHER ==
[~2025-04-09] MED LIST changes: -IBUP-1022 PO; +IBUP600T42 PO; +LEXA1TAB PO
[2025-04-09 13:43] LABS: BASO # 0.0 10^3/uL (0.0-0.2); BASO % 0.5 % (0.0-1.0); EOS # 0.2 10^3/uL (0.0-0.5); EOS % 2.3 % (0.0-3.0); LYMPH # 1.9 10^3/uL (1.5-5.0); LYMPH % 28.2 % (24.0-44.0); MONO # 0.4 10^3/uL (0.0-0.8); MONO % 6.1 % (2.0-8.0); NEUTROPHILS # 4.1 10^3/uL (1.5-8.5); NEUTROPHILS % 62.6 % (36.0-66.0); PLATELET COUNT, AUTOMATED 311 10^3/uL (150-450)
[2025-04-09 13:51] LABS: ALT/SGPT 19 U/L (7.0-40); AST/SGOT 15 U/L (<34); CALCIUM LEVEL 8.8 MG/DL (8.5-10.1); CARBON DIOXIDE LEVEL 29 MMOL/L (20-31); CHLORIDE LEVEL 105 MMOL/L (98-107); CHOLESTEROL LEVEL 173 MG/DL (<200); CHOLESTEROL RISK RATIO 3.46 (<5); CREATININE FOR GFR 0.82 MG/DL (0.55-1.30); FREE T4 0.93 NG/DL (0.89-1.76); GLOMERULAR FILTRATION RATE > 90.0 (>60); LDL CHOLESTEROL 89.9 MG/DL (<100); NON-HDL-C 123.1 MG/DL; POTASSIUM SERUM 4.1 MMOL/L (3.5-5.1); SODIUM LEVEL 142 MMOL/L (136-145); TRIGLYCERIDES LEVEL 166 MG/DL (<150); VITAMIN B12 LEVEL 321 PG/ML (211-911)
[2025-04-09 14:19] LABS: ESTIMATED AVERAGE GLUCOSE 100.0 MG/DL (60-110)
[2025-04-13 18:33] LABS: 25-HYDROXY VITAMIN D2 < 8 pg/mL; 25-HYDROXY VITAMIN D3 27 pg/mL; VITAMIN D 1 25 DIHYDROXY 27 pg/mL (18-72)
== END ==
LOC: M WUC 08:22
PROVIDERS: ATTEND Family Medicine
DX: D51.8 Other vitamin B12 deficiency anemias (principal); E28.2 Polycystic ovarian syndrome; Z13.0 Encounter for screening for diseases of the blood and blood-forming organs and certain disorders involving the immune mechanism; Z13.220 Encounter for screening for lipoid disorders; E55.9 Vitamin D deficiency, unspecified